=== PATIENT | male | born 1980 | race Caucasian/White ===

== ENCOUNTER 2025-05-16 15:38 | Inpatient (IN) | payer OTHER, SELFPAY ==
[~2025-05-16] VITALS: Ht 190.5 cm; Wt 109.4 kg
[~2025-05-16 15:38] MED LIST: FOLI1TAB OR; MAGN500T2 OR; No Historical Meds; OXAZ10CA25 OR; THERGRAN OR; THIA100T OR
[2025-05-16 16:21] LABS: BASO # 0.1 10^3/uL (0.0-0.2); BASO % 1.0 % (0.0-1.0); EOS # 0.1 10^3/uL (0.0-0.5); EOS % 0.8 % (0.0-3.0); LYMPH # 1.6 10^3/uL (1.5-5.0); LYMPH % 11.6 % (24.0-44.0); MONO # 1.2 10^3/uL (0.0-0.8); MONO % 8.4 % (2.0-8.0); NEUTROPHILS # 11.1 10^3/uL (1.5-8.5); NEUTROPHILS % 77.8 % (36.0-66.0); PLATELET COUNT, AUTOMATED 267 10^3/uL (150-450)
[2025-05-16 16:41] LABS: INR 1.0
[2025-05-16 16:51] LABS: ALT/SGPT 35 U/L (7.0-40); AST/SGOT 64 U/L (<34); C REACTIVE PROTEIN QUANTITATIV 5.21 MG/DL (<1.0); CALCIUM LEVEL 7.8 MG/DL (8.5-10.1); CARBON DIOXIDE LEVEL 27 MMOL/L (20-31); CHLORIDE LEVEL 100 MMOL/L (98-107); CREATININE FOR GFR 0.69 MG/DL (0.70-1.30); GLOMERULAR FILTRATION RATE > 90.0 (>60); POTASSIUM SERUM 3.8 MMOL/L (3.5-5.1); SODIUM LEVEL 137 MMOL/L (136-145)
[2025-05-16] MEDS: VANCOMYCIN HCL 2,000 MG, VIAL MATE ADAPTER 1 EACH in NS 500 ML IV ONE (16:57)
[2025-05-16] MEDS ORDERED: HOME MED LIST COMPLETE! XX SCH (17:25)
[2025-05-16] MEDS: NS (Normal Saline) 0.9% 1,000 ML IV SCH (18:20)
[2025-05-16 19:25] LABS: ESTIMATED AVERAGE GLUCOSE 97.0 MG/DL (60-110)
[2025-05-16] MEDS ORDERED: PROHANCE 279.3MG/ML 5ML VIAL As Ordered ONE (20:50)
[2025-05-16] MEDS ORDERED: PROHANCE 279.3MG/ML 15ML VIAL As Ordered ONE (20:50)
[2025-05-16] MEDS: THIAMINE 100 MG TAB PO SCH (21:39)
[2025-05-17] MEDS: VANCOMYCIN HCL 1,500 MG, VIAL MATE ADAPTER 1 EACH in NS 500 ML IV SCH (01:07)
[2025-05-17] MEDS: FOLIC ACID 1 MG TAB PO SCH (08:54)
[2025-05-17] MEDS: MULTIVITAMINS/MINERALS THERAP 1 TAB PO SCH (08:54)
[2025-05-17 11:07] VITALS: BP 149/77; TEMP 99.3; O2SAT 99
[2025-05-17] MEDS: ACETAMINOPHEN 325 MG TAB PO PRN (11:58)
[2025-05-17 12:14] LABS: ALT/SGPT 22 U/L (7.0-40); AST/SGOT 35 U/L (<34); CALCIUM LEVEL 7.3 MG/DL (8.5-10.1); CARBON DIOXIDE LEVEL 23 MMOL/L (20-31); CHLORIDE LEVEL 102 MMOL/L (98-107); CREATININE FOR GFR 0.50 MG/DL (0.70-1.30); GLOMERULAR FILTRATION RATE > 90.0 (>60); POTASSIUM SERUM 3.8 MMOL/L (3.5-5.1); SODIUM LEVEL 136 MMOL/L (136-145)
[2025-05-17 13:13] VITALS: BP 149/77
[2025-05-17 14:25] LABS: PLATELET COUNT, AUTOMATED 164 10^3/uL (150-450)
[2025-05-17 20:14] VITALS: BP 134/85; TEMP 99.5; O2SAT 99
[2025-05-17 21:24] VITALS: BP 131/86
[2025-05-18] VITALS (7 sets, daily range): BP systolic 129–152; BP diastolic 67–85; TEMP 99–100.6; O2SAT 97–99
[2025-05-18 05:52] LABS: PLATELET COUNT, AUTOMATED 171 10^3/uL (150-450)
[2025-05-18 06:23] LABS: ALT/SGPT 19 U/L (7.0-40); AST/SGOT 30 U/L (<34); CALCIUM LEVEL 7.4 MG/DL (8.5-10.1); CARBON DIOXIDE LEVEL 24 MMOL/L (20-31); CHLORIDE LEVEL 104 MMOL/L (98-107); CREATININE FOR GFR 0.51 MG/DL (0.70-1.30); GLOMERULAR FILTRATION RATE > 90.0 (>60); POTASSIUM SERUM 3.6 MMOL/L (3.5-5.1); SODIUM LEVEL 137 MMOL/L (136-145)
[2025-05-18] MEDS: ENOXAPARIN 40 MG/0.4 ML SYRINGE (J1650 PER 10MG) SC SCH (10:14)
[2025-05-18] MEDS: VANCOMYCIN HCL 1,250 MG, VIAL MATE ADAPTER 1 EACH in NS 250 ML IV SCH (10:15)
[2025-05-18 14:43] LABS: IRON (FE) 51 UG/DL (65-175); PERCENT SATURATION 25.1 % (19.7-50.0)
[2025-05-18 14:46] LABS: VITAMIN B12 LEVEL 281 PG/ML (211-911)
[2025-05-19 05:02] VITALS: BP 121/75; TEMP 98.7; O2SAT 99
[2025-05-19 06:20] VITALS: BP 121/75
[2025-05-19 09:27] LABS: PLATELET COUNT, AUTOMATED 215 10^3/uL (150-450)
[2025-05-19 09:45] LABS: ALT/SGPT 21 U/L (7.0-40); AST/SGOT 38 U/L (<34); CALCIUM LEVEL 7.9 MG/DL (8.5-10.1); CARBON DIOXIDE LEVEL 24 MMOL/L (20-31); CHLORIDE LEVEL 104 MMOL/L (98-107); CREATININE FOR GFR 0.54 MG/DL (0.70-1.30); GLOMERULAR FILTRATION RATE > 90.0 (>60); POTASSIUM SERUM 3.6 MMOL/L (3.5-5.1); SODIUM LEVEL 139 MMOL/L (136-145)
[2025-05-19] MEDS: PIPERACILLIN/TAZOBACTAM SOD 3.375 GM in DEXTROSE 5% (D5W) ADV/MINI-BAG 50 ML IV SCH (09:58)
[2025-05-19] MEDS: DOCUSATE SODIUM 100 MG CAPSULE PO SCH (11:19)
[2025-05-19] MEDS: FERROUS SULFATE 325 MG TAB PO SCH (11:19)
[2025-05-19 11:57] VITALS: BP 139/85; TEMP 97.9; O2SAT 98
[2025-05-19 12:00] VITALS: BP 139/85
[2025-05-19 20:54] VITALS: BP 136/84; TEMP 98.7; O2SAT 98
[2025-05-19] MEDS: SENNA 8.6 MG TAB PO SCH (21:24)
[2025-05-19 22:18] VITALS: BP 136/84
[2025-05-20] VITALS (10 sets, daily range): BP systolic 115–135; BP diastolic 62–87; TEMP 98–98.9; O2SAT 95–100
[2025-05-20 08:02] LABS: PLATELET COUNT, AUTOMATED 227 10^3/uL (150-450)
[2025-05-20 08:34] LABS: VANCOMYCIN LEVEL TROUGH 24.7 UG/ML (10.0-20.0)
[2025-05-20 08:47] LABS: ALT/SGPT 20 U/L (7.0-40); AST/SGOT 39 U/L (<34); CALCIUM LEVEL 7.8 MG/DL (8.5-10.1); CARBON DIOXIDE LEVEL 27 MMOL/L (20-31); CHLORIDE LEVEL 107 MMOL/L (98-107); CREATININE FOR GFR 0.88 MG/DL (0.70-1.30); GLOMERULAR FILTRATION RATE > 90.0 (>60); POTASSIUM SERUM 3.9 MMOL/L (3.5-5.1); SODIUM LEVEL 142 MMOL/L (136-145)
[2025-05-20] MEDS: VANCOMYCIN HCL 1,000 MG, VIAL MATE ADAPTER 1 EACH in NS 250 ML IV SCH (14:49)
[2025-05-20] MEDS ORDERED: LIDOCAINE 2% 100 MG/5 ML SDV (FOR ANES.) As Ordered ONE (16:46)
[2025-05-20] MEDS ORDERED: MIDAZOLAM INJ 2 MG/2 ML VIAL As Ordered ONE (16:46)
[2025-05-20] MEDS: CETACAINE SPRAY 5 GM As Ordered ONE (17:14)
[2025-05-21 04:04] VITALS: BP 120/74; TEMP 98.7; O2SAT 97
[2025-05-21 06:23] LABS: PLATELET COUNT, AUTOMATED 228 10^3/uL (150-450)
[2025-05-21 06:57] LABS: C REACTIVE PROTEIN QUANTITATIV 1.35 MG/DL (<1.0)
[2025-05-21 06:58] LABS: ALT/SGPT 17 U/L (7.0-40); AST/SGOT 34 U/L (<34); CALCIUM LEVEL 7.9 MG/DL (8.5-10.1); CARBON DIOXIDE LEVEL 27 MMOL/L (20-31); CHLORIDE LEVEL 105 MMOL/L (98-107); CREATININE FOR GFR 0.92 MG/DL (0.70-1.30); GLOMERULAR FILTRATION RATE > 90.0 (>60); POTASSIUM SERUM 3.6 MMOL/L (3.5-5.1); SODIUM LEVEL 140 MMOL/L (136-145)
[2025-05-21 08:03] VITALS: BP 123/78; TEMP 98.1; O2SAT 96
[2025-05-21] MEDS: VANCOMYCIN HCL 1,000 MG, VIAL MATE ADAPTER 1 EACH in NS 250 ML IV SCH (08:52)
[2025-05-21] MEDS ORDERED: THERTAB19 PO (10:25)
[2025-05-21] MEDS ORDERED: RISATAB3 PO (10:25)
[2025-05-21] MEDS ORDERED: LEVO1TAB39 PO (10:25)
[2025-05-21] MEDS ORDERED: ACET32TAB PO (10:25)
[2025-05-21] MEDS ORDERED: FERR1TAB8 PO (10:25)
[2025-05-21] MEDS ORDERED: DOXY-440 PO (10:25)
[2025-05-21] MEDS ORDERED: COLA100C5 PO (10:25)
[2025-05-21] MEDS ORDERED: SENN18TA PO (10:25)
== END 2025-05-21 12:15 | disposition home or self-care (01) | DRG 720 ==
LOC: M ED 15:38 → M ED INP 17:01 → M MSPAV 05-17 11:07
PROVIDERS: ADMIT Internal Medicine; ATTEND Internal Medicine
PROC: B246ZZZ Ultrasonography of Right and Left Heart (ICD-10-PCS; 2025-05-17)
PROC: B246ZZ4 Ultrasonography of Right and Left Heart, Transesophageal (ICD-10-PCS; principal; 2025-05-20 14:30)
DX: A41.9 Sepsis, unspecified organism (principal); E87.20 Acidosis, unspecified; I95.9 Hypotension, unspecified; E11.51 Type 2 diabetes mellitus with diabetic peripheral angiopathy without gangrene; D62 Acute posthemorrhagic anemia; L97.919 Non-pressure chronic ulcer of unspecified part of right lower leg with unspecified severity; F10.239 Alcohol dependence with withdrawal, unspecified; F17.210 Nicotine dependence, cigarettes, uncomplicated; M86.9 Osteomyelitis, unspecified; D50.9 Iron deficiency anemia, unspecified; D48.5 Neoplasm of uncertain behavior of skin; I73.9 Peripheral vascular disease, unspecified; R00.0 Tachycardia, unspecified; R58 Hemorrhage, not elsewhere classified